=== PATIENT | male | born 1990 | race Caucasian/White ===

== ENCOUNTER 2019-02-11 22:55 | Outpatient (CLI) | payer OTHER | END 2019-02-11 23:59 | disposition critical access hospital (66) | LOC: EMS 22:55 | PROVIDERS: ATTEND Surgery | DX: R51 Headache (principal); H53.8 Other visual disturbances; M54.2 Cervicalgia | CPT/HCPCS: A0425; A0427 ==

== ENCOUNTER 2019-02-12 00:20 | Emergency (ER) | payer OTHER ==
[2019-02-12] MEDS ORDERED: KETOROLAC 30 MG/ML VIAL IVP STA (01:05)
[2019-02-12] MEDS ORDERED: PROCHLORPERAZINE 10 MG/2 ML VIAL IVP STA (01:05)
[2019-02-12] MEDS ORDERED: diphenhydrAMINE INJ 50 MG/ML VIAL IVP STA (01:05)
--- NOTE | 2019-02-12 02:46 | ED Physician Documentation ---
PD HPI HEADACHE - Stated complaint Stated Complaint: BAILEY - Chief complaint Chief Complaint: Neuro - History obtained from History obtained from: Patient, Family - History of Present Illness Timing - onset: How many days ago (3) Timing - duration: Days Timing - details: Gradual onset, Waxing and waning Pain level now: 4 Worst headache ever?: No: Worst headache ever? (has had similar headaches but has not seen anyone for them) Location: Global Associated symptoms: No: Fever, Stiff neck, Nausea, Vomiting, Weakness, Numbness Improved by: Dark room Worsened by: Light Contributing factors: No: Hypertension Review of Systems Constitutional: reports: Reviewed and negative Eyes: reports: Photophobia. denies: Loss of vision, Decreased vision Cardiac: reports: Reviewed and negative Respiratory: reports: Reviewed and negative GI: reports: Reviewed and negative Musculoskeletal: reports: Reviewed and negative Neurologic: reports: Headache. 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; seizure r/t hypoclygemia - Past Surgical History Past Surgical History: Yes HEENT: Other - Present Medications Home Medications: Ambulatory Orders Medication Instructions Recorded Confirmed Oxycodone HCl/Acetaminophen 1 - 2 each PO Q6H PRN #14 tablet 02/12/19 [Percocet 5-325 mg Tablet] Prochlorperazine [Compazine] 10 mg PO Q6H PRN #14 tablet 02/12/19 - Allergies Allergies/Adverse Reactions: Allergies Allergy/AdvReac Type Severity Reaction Status Date / Time acetaminophen [From Vicodin] AdvReac Itching Verified 02/12/19 00:42 hydrocodone [From Vicodin] AdvReac Itching Verified 02/12/19 00:42 - Social History Does the pt smoke?: No Smoking Status: Former smoker Does the pt drink ETOH?: Yes Does the pt have substance abuse?: No Substance Use and Type: Marijuana - Immunizations Immunizations are current?: No Immunizations: TDAP >10years/unknown - POLST Patient has POLST: No PD ED PE NORMAL - Vitals Vital signs reviewed: Yes - General General: Alert and oriented X 3, No acute distress, Well developed/nourished - HEENT HEENT: PERRL, EOMI, Moist mucous membranes - Neck Neck: Supple, no meningeal sign - Cardiac Cardiac: RRR, No murmur - Respiratory Respiratory: No respiratory distress, Clear bilaterally - Neuro Neuro: Alert and oriented X 3, 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, No motor deficit, No sensory deficit, Normal speech Results - Vitals Vitals: Oxygen O2 Source Room air - Rads (name of study) CT head Radiology: Prelim report reviewed, See rad report PD MEDICAL DECISION MAKING - ED course Complexity details: reviewed results, re-evaluated patient, considered differential, d/w patient, d/w family ED course: on reevaluation after meds given and CT resulted, patient reports resolution of symptoms Departure - Departure Disposition: 01 Home, Self Care Clinical Impression: Headache Condition: Good Instructions: ED Cephalgia Unspecified Follow-Up: Michael Morgan, [Primary Care Provider] - Within 1 week Prescriptions: Oxycodone HCl/Acetaminophen [Percocet 5-325 mg Tablet] 1 - 2 each PO Q6H PRN #14 tablet PRN Reason: pain Prochlorperazine [Compazine] 10 mg PO Q6H PRN #14 tablet PRN Reason: Nausea / Vomiting Discharge Date/Time: 02/12/19 05:08
--- NOTE | 2019-02-12 03:47 | CT Report ---
Reason: headache Procedure Date: 02/12/2019 Accession Number: [id number] / [id number] Procedure: CT - HEAD WO CPT Code: Final Report FULL RESULT: EXAM: CT HEAD EXAM DATE: 02/12/2019 03:37 AM. CLINICAL HISTORY: Headache with nausea and vomiting. COMPARISON: None. TECHNIQUE: Multiaxial CT images were obtained from the foramen magnum to the vertex. Reformats: Sagittal and coronal. IV contrast: None. In accordance with CT protocol optimization, one or more of the following dose reduction techniques were utilized for this exam: automated exposure control, adjustment of mA and/or KV based on patient size, or use of iterative reconstructive technique. FINDINGS: Parenchyma: No intraparenchymal hemorrhage. No evidence of mass, midline shift, or CT findings of infarction. Jean-white differentiation is distinct. Extraaxial Spaces: Normal for age. No subdural or epidural collections identified. Ventricles: Normal in size and position. Sinuses and Orbits: Imaged paranasal sinuses, orbits, and mastoids show no significant abnormality. Bones: No evidence of fracture or calvarial defect. Other: None. IMPRESSION: Normal head CT. [facility]
[2019-02-12 05:09] VITALS: BP 102/64
== END 2019-02-12 05:08 | disposition home or self-care (01) ==
LOC: EDUNIT# → ED 00:20
DX: R51 Headache (principal); Z87.891 Personal history of nicotine dependence
CPT/HCPCS: 70450; 96374; 96375; 99284; J1200